=== PATIENT | female | born 1995 | race Caucasian/White ===

== ENCOUNTER 2018-10-31 16:16 | Inpatient (IN) ==
[2018-10-31] MEDS ORDERED: MOM Conc 10 ML UD.LIQ PO PRN (16:26)
[2018-10-31] MEDS ORDERED: Mag Hydrox/Al Hydrox/Simeth 30 ML UDC PO PRN (16:26)
[2018-10-31] MEDS ORDERED: *HR* LORazepam 1 MG TABLET PO PRN (16:26)
[2018-10-31] MEDS ORDERED: Haloperidol Lactate 5 MG/ML VIAL IM PRN (16:26)
[2018-10-31] MEDS ORDERED: *HR* LORazepam 2 MG/ML VIAL IM PRN (16:26)
[2018-10-31] MEDS: hydrOXYzine pamoate 25 MG CAPSULE PO PRN (23:46)
--- NOTE | 2018-11-01 09:45 | Psychiatry History & Physical ---
Date of Encounter: 11/01/18 Time of Encounter: 09:37 History of Present Illness Patient Stated Chief Complaint: psychosis Medicare Admission Attestation: For traditional Medicare patients the provided hospital inpatient services are reasonable and necessary and in the case of services not specified as inpatient-only under 42 CFR 419.22 (n), that they are appropriately provided as inpatient services in accordance 42 CFR 412.3. For Critical Access Hospital the patient may reasonably be expected to be discharged or transferred to a hospital within 96 hours after admission to the Critical Access Hospital. Admitted From: Home Plans for Post Hospital Care: Home History of Present Illness: Ms. Meadows is a 23 year old female who was admitted medically to [facility] with mental status changes. Medical work up unremarkable. She was transferred to a medical floor here at [facility] and Psychiatry was consulted yesterday. On eval client appeared psychotic. She was pleasant but delusional. She reported not knowing if she was male or female and thought that she had just had a baby in the bed. According to notes client has no mental health history but that in the past couple of weeks her behaviors have been changing at home. She has been increasingly dramatic. Emotionally labile. Not wanting her boyfriend to leave the house and chasing after him when he would go out. Denied SI/HI to providers but very confused. Did not appear to know where she was at times. Received prns after transferring to last night. This morning she is sleeping heavily. Cannot be aroused to talk. Best to let her sleep as it is unclear how well she was sleeping at home. Notes do say she was not eating well. Physically healthy. Smokes THC but otherwise no AOD issues. Mother called into unit this morning and stated client put herself through college. Psychology major. No mental illness in family members. However, client is at the age where symptoms of major mental illness often start. Will order an antipsychotic to start today. Mental status exam will be based on how she presented to the consult service yesterday as she is sleeping heavily today. Past Med Surg Social Fam HX - Past Medical History Medical history: no medical history, non-contributory - Past Psychiatric History Psychiatric history: Reports: no psych history Family psychiatric history: No Family History of Suicide: None - Past Surgical History Surgical History: no surgical history - Social History Smoking Status: Never smoker Smokeless Tobacco Status: Yes Alcohol use: rarely Drug use: marijuana - Family History Father Living Status: Still Living Hx Family Cardiac Disorders: No Hx Family Respiratory Disorders: No Hx Family Cancer: No Medications & Allergies Allergy/AdvReac Type Severity Reaction Status Date / Time No Known Allergies Allergy Verified 10/29/18 17:27 Review of Systems Constitutional: Denies: fever, chills, weakness, weight change Eyes: Denies: eye pain, vision change Ears, Nose, Throat: Denies: ear pain, throat pain, dental pain, hearing loss, congestion Cardiovascular: Denies: chest pain, palpitations, dyspnea on exertion Respiratory: Denies: cough, dyspnea, wheezes Gastrointestinal: Denies: abdominal pain, nausea, vomiting, diarrhea, constipation Genitourinary female: Denies: urgency, dysuria, frequency, abnormal menses, dyspareunia Musculoskeletal: Denies: joint swelling, joint pain Integumentary: Denies: rash, lesions, pruritus Neurological: Denies: headache, weakness, numbness, memory loss Endocrine: Denies: fatigue, heat or cold intolerance Hematologic/Lymphatic: Denies: easy bruising, lymphadenopathy Allergic/Immunologic: Denies: urticaria, itchy eyes Exam - HEENT Head exam IM: Present: atraumatic Eye exam IM: Present: EOMI ENT exam IM: Present: normal exam - Neurological Neurological exam: Present: CN II-XII intact - Respiratory Respiratory exam IM: Present: CTAB - GI/Abdominal GI/Abdominal exam IM: Present: normal bowel sounds, soft. Absent: tenderness - Extremities Extremities exam IM: Present: full ROM - Skin Skin exam IM: Present: dry, warm - Constitutional Vitals: Temp Pulse Resp BP Pulse Ox 98.9 F 97 18 124/83 97 11/01/18 08:54 11/01/18 08:54 11/01/18 08:54 11/01/18 08:54 11/01/18 08:54 General appearance: age & developmentally appropriate, well-groomed, well- nourished - Musculoskeletal Gait: normal Station: relaxed Strength & Tone: normal for patient - Psychiatric Patient Orientation: Yes Person, Yes Place Level of alertness: Alert, Sedated Behavior: calm, cooperative Psychomotor activity: Normal Eye Contact: Maintains Eye Contact Mood Description: Anxious Affect description: congruent with mood Speech Volume: Normal Speech pattern: normal rate, normal rhythm, normal tone, fluent, spontaneous Language & Vocabulary: consistent with education Thought Process: Tangential Thought Content: No Suicidal ideation, No Homicidal ideation, Yes Overt delusions Perceptual Disturbances: No Auditory hallucinations, No Visual hallucinations Attention Span Ability: Capable of Focused Attention Memory Description: Immediate Intact, Recent Impaired, Remote Intact Patient Reliability: Questionable Historian Fund of knowledge: Yes abstraction ability, Yes average, Yes aware of current events Intelligence Estimate: Average Judgment: Limited Insight: Minimal Assessment and Plan (1) Unspecified psychosis Current visit: Yes Status: Acute Plan: Admit inpatient for safety and stabilization, Close observation, Suicide Precautions per unit protocol, Encourage participation in unit milieu, Group Therapy, Monitor sleep, Monitor appetite Risks, benefits, side effects, alternatives discussed w/pt: Yes Patient agreeable to treatment: Yes Plans for Post Hospital Care: Home Estimated Length of Stay (Days): 4 Qualifiers: Psychosis type: unspecified psychosis type Qualified Code(s): F29 - Unspecified psychosis not due to a substance or known physiological condition
[2018-11-01] MEDS: hydrOXYzine pamoate 25 MG CAPSULE PO PRN ×2 (13:51→21:35)
[2018-11-01] MEDS: risperiDONE 0.25 MG TABLET PO SCH (21:35)
[2018-11-02] MEDS: risperiDONE 0.25 MG TABLET PO SCH (09:04)
--- NOTE | 2018-11-02 09:44 | Psychiatry Progress Note ---
Date of Encounter: 11/02/18 Time of Encounter: 09:36 Subjective Interval history: Client is awake and alert today. Pleasant but a poor historian. Speech is vague and without real content. Talks superficially about everything. No clear history of mental illness. Admits to some depression and anxiety in the past but symptoms were mild. No history of treatment beyond some counseling with school therapists when feeling overwhelmed. Denies SI/HI/AH/VH. Does not appear to be responding to IS but still somewhat disorganized. Came out of room naked last night. Responded to redirection. No evidence of cooper or major depression. Clearly has altered thinking but not overtly paranoid. 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 Took Risperdal last night. No longer having any agitation so it seems to be helping. Will increase dose slightly for tonight. Discussed and client admitted she had one but said it was a couple of years ago and she is doing fine with it. Does not seem to be a recent stressor. Review of Systems Constitutional: Denies: fever, chills, weakness, weight change Eyes: Denies: eye pain, vision change Ears, Nose, Throat: Denies: ear pain, throat pain, dental pain, hearing loss, congestion Cardiovascular: Denies: chest pain, palpitations, dyspnea on exertion Respiratory: Denies: cough, dyspnea, wheezes Gastrointestinal: Denies: abdominal pain, nausea, vomiting, diarrhea, constipation Musculoskeletal: Denies: joint swelling, joint pain Neurological: Denies: headache, weakness, numbness, memory loss Results - Vital Signs Vital Signs: Temp Pulse Resp BP Pulse Ox 98.6 F 112 20 152/98 99 11/01/18 20:03 11/01/18 20:03 11/01/18 20:03 11/01/18 20:03 11/01/18 20:03 Assessment and Plan (1) Unspecified psychosis Current visit: Yes Status: Acute Plan: Continue hospitalization, Close observation, Suicide Precautions per unit protocol, Encourage participation in unit milieu, Group Therapy, Monitor sleep, Monitor appetite Risks, benefits, side effects, alternatives discussed w/pt: Yes Patient agreeable to treatment: Yes Qualifiers: Psychosis type: unspecified psychosis type Qualified Code(s): F29 - Unspecified psychosis not due to a substance or known physiological condition Psychiatry Exam - Constitutional Vitals: Temp Pulse Resp BP Pulse Ox 98.6 F 112 20 152/98 99 11/01/18 20:03 11/01/18 20:03 11/01/18 20:03 11/01/18 20:03 11/01/18 20:03 General appearance: age & developmentally appropriate, well-groomed, well- nourished - Musculoskeletal Gait: normal Station: relaxed Strength & Tone: normal for patient - Psychiatric Patient Orientation: Yes Person, Yes Place Level of alertness: Alert Behavior: calm, cooperative Psychomotor activity: Normal Eye Contact: Maintains Eye Contact Mood Description: Euthymic/stable Affect description: congruent with mood, full range Speech Volume: Normal Speech pattern: normal rate, normal rhythm, normal tone, fluent, spontaneous Language & Vocabulary: consistent with education Thought Process: [place] Thought Content: No Suicidal ideation, No Homicidal ideation, Yes Poverty of Content Perceptual Disturbances: No Auditory hallucinations, No Visual hallucinations Attention Span Ability: Capable of Focused Attention Memory Description: Immediate Intact, Recent Impaired, Remote Intact Patient Reliability: Questionable Historian Fund of knowledge: Yes abstraction ability, Yes aware of current events Intelligence Estimate: Average Judgment: Limited Insight: Minimal
[2018-11-02] MEDS: hydrOXYzine pamoate 25 MG CAPSULE PO PRN (18:28)
[2018-11-02] MEDS: Ibuprofen 400 MG TABLET PO PRN (19:45)
[2018-11-02] MEDS: risperiDONE 1 MG TABLET PO SCH (20:44)
[2018-11-03] MEDS: risperiDONE 1 MG TABLET PO SCH ×2 (09:16→20:40)
--- NOTE | 2018-11-03 09:23 | Psychiatry Progress Note ---
Date of Encounter: 11/03/18 Time of Encounter: : Subjective Interval history: Patient reports that she is doing well. She continues to have speech without much content. She will talk for several minutes straight and repeat the same generalities over and over. She was pleasant. She was able to complete a clock draw appropriately. She still was disorganized. Her shirt was open and exposing her breasts to some extent. She was able to state that she is a "girl" and identify all of the other genders of individuals in the room. An improvement from a few days ago when she did not know her own gender. She was able to state her name. She was agreeable to allowing us to speak with her mother. A voicemail was left asking for a return call. She was later noted to be on the ground in the day room coloring. She identified that she was in the hospital. Review of Systems Integumentary: Denies: rash Neurological: Reports: headache. Denies: abnormal gait Psychiatric: Reports: confusion, memory loss, mood swings, panic attacks Results - Vital Signs Vital Signs: Temp Pulse Resp BP Pulse Ox 99.4 F 109 18 104/66 98 11/03/18 09:00 11/03/18 09:00 11/03/18 09:00 11/03/18 09:00 11/03/18 09:00 Assessment and Plan (1) Unspecified psychosis Current visit: Yes Status: Acute Plan: Continue hospitalization, Close observation, Suicide Precautions per unit protocol, Encourage participation in unit milieu, Group Therapy, Monitor sleep, Monitor appetite, Other (Phone call placed to mother left a message) Additional Plan: Risperdal was increased yesterday. She is tolerating that okay. We will continue that dose for today consider further increase tomorrow if she continues to have disorganized thinking. Encourage group attendance. Therapists working on discharge planning. Risks, benefits, side effects, alternatives discussed w/pt: Yes Patient agreeable to treatment: Yes Qualifiers: Psychosis type: unspecified psychosis type Qualified Code(s): F29 - Unspecified psychosis not due to a substance or known physiological condition Psychiatry Exam - Constitutional Vitals: Temp Pulse Resp BP Pulse Ox 99.4 F 109 18 104/66 98 11/03/18 09:00 11/03/18 09:00 11/03/18 09:00 11/03/18 09:00 11/03/18 09:00 General appearance: age & developmentally appropriate, unkempt, disheveled Additional observations: Shirt was open at the top - Musculoskeletal Gait: slow Station: relaxed Strength & Tone: normal for patient - Psychiatric Patient Orientation: Yes Person, Yes Place Level of alertness: Follows commands (slowed) Behavior: distractible, withdrawn Psychomotor activity: Slowed Eye Contact: Maintains Eye Contact Mood Description: Other Patient description of mood: "ok" Affect description: flat Speech Volume: No variation in volume Speech pattern: monotone Language & Vocabulary: consistent with education Thought Process: Thought Blocking Thought Content: No Suicidal ideation, No Homicidal ideation Perceptual Disturbances: Yes Reacting to internal stimuli (possible) Attention Span Ability: Unable to Focus, Unable to Sustain Attention Memory Description: Immediate Impaired, Recent Impaired, Remote Impaired Patient Reliability: Questionable Historian Fund of knowledge: Yes average Intelligence Estimate: Average Judgment: Poor Insight: None
--- NOTE | 2018-11-03 13:26 | Event Note ---
Date of Encounter: 11/03/18 Time of Encounter: 13:00 AALIYAH was received and patient's mother, Estefanía, was called. She explains that Lois is acting "not like my daughter" right now. She explains that Lois went to college while in high school and graduated with 2 associates degrees. She explains that she went to [employer] and got an undergraduate degree in psychology. She states that her daughter has always been a straight a student and until recently has been a "[id number]" person, working after college as well. She reports that she first noticed abnormal behavior 3.5 weeks ago when she received a "long and emotional" text message from the patient explaining of how she was proud of her mother and loved her very much. She also reports that the patient would speak about world peace and being able to assist with world peace with her degree. She explains that the patient became anxious at times because "God would not forgive her for her sins." She reports that the patient's boyfriend was worried about her mother and would talk often about childhood. Patient's mother explains that she is never known her daughter to use drugs. She denies that she gives the patient drugs. She explains that she just found out that her daughter had smoked marijuana at times. She is asked the patient's boyfriend several times if the patient has used drugs which he is denied except for marijuana use which he reports she used the last 2.5 weeks ago. She reports the most significant symptom she is noticed from the patient is memory loss. She states that it appears that she does not have a memory of the last few years or of her boyfriend. She explains that when she talks with the patient, the patient words wanting to go home with "sissy." When asked what home is, the patient reports home with her mother. Her mother reports that she has not lived with her mother in the last 3 years. She also reports that she had to explain to the patient how to shower and had a brush her teeth, reporting that the patient was given the toothbrush in charge brush her hair with it. He continues to state that they were playing [address] in the day room, and the patient was unable to understand the game. She also reports that her daughter was cussing when she was not allowed to leave and would never class in front of her in the past. She did report that the patient admitted to an at the age of 20 which the mom had not previously noted about. She did explain that patient was upset about this issue. She reports that her daughter does have a history of depression and anxiety, stating that she was in therapy at the ages of 18 and 19. She denies that her daughter has ever been on psychiatric medications. She denies that her daughters had issue with social skills. She does report that her daughter did not have a lot of friends but states she did have a "handful of close friends." She reports a positive family history of the patient's maternal great- grandmother having a diagnosis of schizophrenia. She denies any other family history of mental health issues. The patient's mother also reports that she currently lives in [facility]. She reports that any follow-up services would have to be near this area.
[2018-11-03] MEDS: Ibuprofen 400 MG TABLET PO PRN (14:39)
[2018-11-03 19:59] LABS: Basophils % 0.4 %; Eosinophils # 0.1 K/mcL (0.0-0.6); Eosinophils % 1.6 %; Hematocrit 41.7 % (35.3-44.9); Hemoglobin 13.8 g/dL (11.5-15.4); Immature Granulocytes % 0.2 % (0-4); Lymphocytes # 2.3 K/mcL (0.6-4.6); Lymphocytes % 28.2 %; Mean Corpuscular HGB Conc 33.1 g/dL (31.6-35.5); Mean Corpuscular Hemoglobin 30.4 pg (28.0-33.3); Mean Corpuscular Volume 91.9 fL (83.0-100.0); Mean Platelet Volume 9.6 fL (9.4-12.4); Monocytes # 0.7 K/mcL (0.0-1.3); Monocytes % 8.9 %; Neutrophils # 4.9 K/mcL (1.6-8.9); Platelet Count 357 K/mcL (140-400); Red Blood Count 4.54 M/mcL (3.82-4.97); Segmented Neutrophils % 60.7 %
[2018-11-03 20:13] LABS: Alanine Aminotransferase 10 Units/L (7-52); Albumin 4.9 g/dL (3.5-5.7); Albumin/Globulin Ratio 1.8 (1.1-2.2); Alkaline Phosphatase 69 Units/L (34-104); Aspartate Amino Transferase 12 Units/L (13-39); BUN/Creatinine Ratio 7 (6-26); Bilirubin,Total 0.7 mg/dL (0.3-1.0); Blood Urea Nitrogen 5 mg/dL (6-20); Calcium 9.8 mg/dL (8.6-10.3); Carbon Dioxide 26 mEq/L (23-29); Chloride 105 mEq/L (98-107); Cholesterol 168 mg/dL (< 200); Globulin 2.8 g/dL (2.4-3.5); Glucose 100 mg/dL (70-105); HDL Cholesterol 57 mg/dL (40-59); Osmolality,Calculated 281 (280-300); Potassium 3.5 mEq/L (3.5-5.1); Sodium 137 mEq/L (136-145); Total Protein 7.7 g/dL (6.4-8.9); Triglycerides 62 mg/dL (< 150); eGFR For Non-African Americans > 60 (> 60)
[2018-11-03 20:14] LABS: Chol/HDL Ratio 2.9 (0-4.9); LDL Cholesterol,Calculated 99 mg/dL (0-99)
[2018-11-03 20:36] LABS: Estimated Average Glucose 100 mg/dl; Hemoglobin A1C 5.1 %
[2018-11-03] MEDS: hydrOXYzine pamoate 25 MG CAPSULE PO PRN (20:40)
[2018-11-03 20:41] LABS: Bilirubin,Urine Negative (Negative); Blood,Urine Negative (Negative); Clarity,Urine Cloudy (Clear); Color,Urine Yellow (Yellow); Glucose,Urine (UA) Normal (Normal); Ketones,Urine Negative (Negative); Leukocyte Esterase,Urine Trace (Negative); Nitrite,Urine Negative (Negative); PH,Urine 6.5 pH Units (5.0-8.0); Protein,Urine Negative (Neg-Trace); Specific Gravity,Urine < 1.005 (1.010-1.025); Urobilinogen,Urine Normal (Normal)
[2018-11-03 20:44] LABS: Bacteria,Urine Moderate per hpf (None-Few); RBC,Urine 0-3 per hpf (0-3); Squamous Epithelial Cell,Urine Many per lpf (None-Few)
[2018-11-03 21:04] LABS: Hyaline Casts,Urine None Seen per lpf (None-Few)
--- NOTE | 2018-11-04 08:43 | Psychiatry Progress Note ---
Date of Encounter: 11/04/18 Time of Encounter: 08:40 Subjective Interval history: Patient continues to be confused with significant thought blocking. Needs instructions in how to bathe and brush her teeth and encouragement to sit down and eat. Not caring for ADLs. Sexually inapropriate and trying to go into peers rooms. +AH. Review of Systems Neurological: Reports: headache, weakness Psychiatric: Reports: confusion, memory loss, mood swings, panic attacks Endocrine: Reports: fatigue Results - Vital Signs Vital Signs: Temp Pulse Resp BP Pulse Ox 98.4 F 108 16 114/78 98 11/03/18 19:42 11/03/18 19:42 11/03/18 19:42 11/03/18 19:42 11/03/18 09:00 - Labs Labs: Laboratory Results - last 24 hr 11/03/18 11/03/18 11/03/18 19:36 19:36 19:36 WBC 8.1 RBC 4.54 Hgb 13.8 Hct 41.7 MCV 91.9 MCH 30.4 MCHC 33.1 RDW 13.0 Plt Count 357 MPV 9.6 Immature Gran % 0.2 Seg Neutrophils % 60.7 Lymphocytes % 28.2 Monocytes % 8.9 Eosinophils % 1.6 Basophils % 0.4 Neutrophils # 4.9 Lymphocytes # 2.3 Monocytes # 0.7 Eosinophils # 0.1 Basophils # 0.0 Sodium 137 Potassium 3.5 Chloride 105 Carbon Dioxide 26 BUN 5 L Creatinine 0.67 Est GFR ( Amer) > 60 Est GFR (Non-Af Amer) > 60 BUN/Creatinine Ratio 7 Glucose 100 Est Mean Plasma Glucose Hemoglobin A1c Calculated Osmolality 281 Calcium 9.8 Total Bilirubin 0.7 AST 12 L ALT 10 Alkaline Phosphatase 69 Serum Total Protein 7.7 Albumin 4.9 Globulin 2.8 Albumin/Globulin Ratio 1.8 Triglycerides 62 Cholesterol 168 LDL Cholesterol, Calc 99 VLDL Cholesterol, Calc 12 HDL Cholesterol 57 Cholesterol/HDL Ratio 2.9 TSH 2.987 Urine Color Urine Clarity Urine pH Ur Specific [place] Urine Protein Urine Glucose (UA) Urine Ketones Urine Blood Urine Nitrite Urine Bilirubin Urine Urobilinogen Ur Leukocyte Esterase Urine Microscopic RBC Urine Microscopic WBC Ur Squamous Epith Cells Urine Bacteria Hyaline Casts Ur Culture Indicated? 11/03/18 11/03/18 19:36 20:14 WBC RBC Hgb Hct MCV MCH MCHC RDW Plt Count MPV Immature Gran % Seg Neutrophils % Lymphocytes % Monocytes % Eosinophils % Basophils % Neutrophils # Lymphocytes # Monocytes # Eosinophils # Basophils # Sodium Potassium Chloride Carbon Dioxide BUN Creatinine Est GFR ( Amer) Est GFR (Non-Af Amer) BUN/Creatinine Ratio Glucose Est Mean Plasma Glucose 100 Hemoglobin A1c 5.1 Calculated Osmolality Calcium Total Bilirubin AST ALT Alkaline Phosphatase Serum Total Protein Albumin Globulin Albumin/Globulin Ratio Triglycerides Cholesterol LDL Cholesterol, Calc VLDL Cholesterol, Calc HDL Cholesterol Cholesterol/HDL Ratio TSH Urine Color Yellow Urine Clarity Cloudy A Urine pH 6.5 Ur Specific [place] < 1.005 L Urine Protein Negative Urine Glucose (UA) Normal Urine Ketones Negative Urine Blood Negative Urine Nitrite Negative Urine Bilirubin Negative Urine Urobilinogen Normal Ur Leukocyte Esterase Trace H Urine Microscopic RBC 0-3 Urine Microscopic WBC 5-15 H Ur Squamous Epith Cells Many H Urine Bacteria Moderate H Hyaline Casts None Seen Ur Culture Indicated? NO. A Assessment and Plan (1) Unspecified psychosis Current visit: Yes Status: Acute Plan: Continue hospitalization, Close observation, Suicide Precautions per unit protocol, Encourage participation in unit milieu, Group Therapy, Monitor sleep, Monitor appetite Additional Plan: Increase hs risperdal to 2mg for further antipsychotic effects, encourage groups, therapits working on d/c planning, labs look better, denies uti sxs. Risks, benefits, side effects, alternatives discussed w/pt: Yes Patient ag reeable to treatment: Yes Qualifiers: Psychosis type: unspecified psychosis type Qualified Code(s): F29 - Unspecified psychosis not due to a substance or known physiological condition Consult Discharge Plan - Plan Referrals: NONE,PCP [Primary Care Provider] - Psychiatry Exam - Constitutional Vitals: Temp Pulse Resp BP Pulse Ox 98.4 F 108 16 114/78 98 11/03/18 19:42 11/03/18 19:42 11/03/18 19:42 11/03/18 19:42 11/03/18 09:00 General appearance: unkempt, disheveled, malodorous Additional observations: low cut shirt - Musculoskeletal Gait: slow Station: stooped Strength & Tone: mild weakness - Psychiatric Patient Orientation: Yes Person, Yes Place Level of alertness: Alert, Other (slow responses) Behavior: restless, distractible Psychomotor activity: Slowed Eye Contact: Minimal Contact Mood Description: Other Patient description of mood: "ok" Affect description: flat Speech Volume: Soft/Quiet, No variation in volume Speech pattern: monotone Language & Vocabulary: consistent with education Thought Process: Thought Blocking Thought Content: No Suicidal ideation, No Homicidal ideation, Yes Preoccupation Perceptual Disturbances: Yes Auditory hallucinations Attention Span Ability: Unable to Focus, Unable to Sustain Attention Memory Description: Immediate Impaired, Recent Impaired, Remote Impaired Patient Reliability: Questionable Historian Fund of knowledge: Yes average Intelligence Estimate: Average Judgment: Poor Insight: Minimal
[2018-11-04] MEDS: risperiDONE 1 MG TABLET PO SCH ×2 (09:18→21:16)
[2018-11-04] MEDS: hydrOXYzine pamoate 25 MG CAPSULE PO PRN (21:14)
--- NOTE | 2018-11-05 09:06 | Psychiatry Progress Note ---
Date of Encounter: 11/05/18 Time of Encounter: 08:00 Subjective Interval history: Patient impulsively walked into my office. She then proceeded to sit down and talk. She continues to be very disorganized and intrusive. She is not caring for her activities of daily living. Poor hygiene. Needs encouragement to eat. Putting herself in harm's way being sexually inappropriate. She continues to have some thought blocking and hallucinations. She tolerated increase Risperdal last night but that she still has some difficulty staying asleep. She is talking about good and evil and evil things she has done in the past. Review of Systems Neurological: Denies: headache, weakness Psychiatric: Reports: auditory hallucinations, confusion, memory loss, difficulty concentrating Endocrine: Denies: fatigue Results - Vital Signs Vital Signs: Temp Pulse Resp BP Pulse Ox 97.8 F 108 16 136/89 98 11/04/18 21:00 11/04/18 21:00 11/04/18 21:11/04/18 21:00 11/04/18 09:00 Assessment and Plan (1) Unspecified psychosis Current visit: Yes Status: Acute Plan: Continue hospitalization, Close observation, Suicide Precautions per unit protocol, Encourage participation in unit milieu, Group Therapy, Monitor sleep, Monitor appetite Additional Plan: Continue Risperdal, consider further increase tomorrow, encourage groups, therapist working on working on discharge planning Risks, benefits, side effects, alternatives discussed w/pt: Yes Patient agreeable to treatment: Yes Qualifiers: Psychosis type: unspecified psychosis type Qualified Code(s): F29 - Unspecified psychosis not due to a substance or known physiological condition Consult Discharge Plan - Plan Referrals: NONE,PCP [Primary Care Provider] - Psychiatry Exam - Constitutional Vitals: Temp Pulse Resp BP Pulse Ox 97.8 F 108 16 136/89 98 11/04/18 21:00 11/04/18 21:00 11/04/18 21:00 11/04/18 21:11/04/18 09:00 General appearance: age & developmentally appropriate, unkempt, disheveled - Musculoskeletal Gait: slow Station: stooped Strength & Tone: normal for patient - Psychiatric Patient Orientation: Yes Person, Yes Place Level of alertness: Alert Psychomotor activity: Slowed Eye Contact: Minimal Contact Mood Description: Other ("fine") Patient description of mood: "fine" Affect description: flat, incongruent with mood Speech Volume: Soft/Quiet Speech pattern: rambling, monotone Language & Vocabulary: consistent with education Thought Process: Thought Blocking Thought Content: No Suicidal ideation, No Homicidal ideation, Yes Preoccupation Perceptual Disturbances: Yes Reacting to internal stimuli, Yes Auditory hallucinations Attention Span Ability: Unable to Focus, Unable to Sustain Attention Memory Description: Immediate Impaired, Recent Impaired, Remote Impaired Patient Reliability: Questionable Historian Fund of knowledge: Yes average Intelligence Estimate: Average Judgment: Poor Insight: Minimal
[2018-11-05] MEDS: risperiDONE 1 MG TABLET PO SCH ×2 (10:04→20:48)
[2018-11-06 09:00] VITALS: BP 113/64
[2018-11-06] MEDS: risperiDONE 1 MG TABLET PO SCH (09:17)
--- NOTE | 2018-11-06 09:51 | Discharge Summary ---
Date of Encounter: 11/06/18 Time of Encounter: 09:49 Diagnosis - Discharge Diagnosis (1) Unspecified psychosis Status: Acute Qualifiers: Psychosis type: unspecified psychosis type Qualified Code(s): F29 - Unspecified psychosis not due to a substance or known physiological condition Medications - Discharge Medications Prescriptions: hydrOXYzine pamoate [HydrOXYzine Pamoate] 25 mg PO TID PRN #30 capsule PRN Reason: Anxiety risperiDONE [RisperDAL] 1 mg PO QAM #30 tablet risperiDONE [RisperDAL] 2 mg PO HS #30 tablet hydrOXYzine pamoate [HydrOXYzine Pamoate] 25 mg PO TID PRN #30 capsule 11/06/18 [Rx] risperiDONE [RisperDAL] 1 mg PO QAM #30 tablet 11/06/18 [Rx] risperiDONE [RisperDAL] 2 mg PO HS #30 tablet 11/06/18 [Rx] Allergy/AdvReac Type Severity Reaction Status Date / Time No Known Allergies Allergy Verified 10/29/18 17:27 Results Procedures and tests throughout hospitalization: Completed Lab Orders Category Date Time Status Complete Blood Count [HEME] Routine Lab 11/03/18 19:36 Completed Comprehensive Metabolic Panel Routine Lab 11/03/18 19:36 Completed Hgb A1C Routine Lab 11/03/18 19:36 Completed Lipid Panel Routine Lab 11/03/18 19:36 Completed Thyroid Stimulating Hormone Routine Lab 11/03/18 19:36 Completed Urinalysis Reflex Cult & Micro [URIN] Routine Lab 11/03/18 20:14 Completed Lab Results 11/03/18 11/03/18 11/03/18 Range/Units 19:36 19:36 19:36 WBC 8.1 (4.3-11.1) K/mcL RBC 4.54 (3.82-4.97) M/mcL Hgb 13.8 (11.5-15.4) g/dL Hct 41.7 (35.3-44.9) % MCV 91.9 (83.0-100.0) fL MCH 30.4 (28.0-33.3) pg MCHC 33.1 (31.6-35.5) g/dL RDW 13.0 (11.5-14.5) % Plt Count 357 (140-400) K/mcL MPV 9.6 (9.4-12.4) fL Immature Gran % 0.2 (0-4) % Seg Neutrophils % 60.7 % Lymphocytes % 28.2 % Monocytes % 8.9 % Eosinophils % 1.6 % Basophils % 0.4 % Neutrophils # 4.9 (1.6-8.9) K/mcL Lymphocytes # 2.3 (0.6-4.6) K/mcL Monocytes # 0.7 (0.0-1.3) K/mcL Eosinophils # 0.1 (0.0-0.6) K/mcL Basophils # 0.0 (0.0-0.2) K/mcL Sodium 137 (136-145) mEq/L Potassium 3.5 (3.5-5.1) mEq/L Chloride 105 (98-107) mEq/L Carbon Dioxide 26 (23-29) mEq/L BUN 5 L (6-20) mg/dL Creatinine 0.67 (0.60-1.20) mg/dL Est GFR ( Amer) > 60 (> 60) Est GFR (Non-Af Amer) > 60 (> 60) BUN/Creatinine Ratio 7 (6-26) Glucose 100 (70-105) mg/dL Est Mean Plasma Glucose mg/dl Hemoglobin A1c ( - 5.6) % Calculated Osmolality 281 (280-300) Calcium 9.8 (8.6-10.3) mg/dL Total Bilirubin 0.7 (0.3-1.0) mg/dL AST 12 L (13-39) Units/L ALT 10 (7-52) Units/L Alkaline Phosphatase 69 (34-104) Units/L Serum Total Protein 7.7 (6.4-8.9) g/dL Albumin 4.9 (3.5-5.7) g/dL Globulin 2.8 (2.4-3.5) g/dL Albumin/Globulin Ratio 1.8 (1.1-2.2) Triglycerides 62 (< 150) mg/dL Cholesterol 168 (< 200) mg/dL LDL Cholesterol, Calc 99 (0-99) mg/dL VLDL Cholesterol, Calc 12 (< 31) mg/dL HDL Cholesterol 57 (40-59) mg/dL Cholesterol/HDL Ratio 2.9 (0-4.9) TSH 2.987 (0.340-5.600) mcIU/mL Urine Color (Yellow) Urine Clarity (Clear) Urine pH (5.0-8.0) pH Units Ur Specific [place] (1.010-1.025) Urine Protein (Neg-Trace) mg/dL Urine Glucose (UA) (Normal) mg/dL Urine Ketones (Negative) mg/dL Urine Blood (Negative) Urine Nitrite (Negative) Urine Bilirubin (Negative) Urine Urobilinogen (Normal) mg/dL Ur Leukocyte Esterase (Negative) Urine Microscopic RBC (0-3) per hpf Urine Microscopic WBC (0-3) per hpf Ur Squamous Epith Cells (None-Few) per lpf Urine Bacteria (None-Few) per hpf Hyaline Casts (None-Few) per lpf Ur Culture Indicated? (NO) 11/03/18 11/03/18 Range/Units 19:36 20:14 WBC (4.3-11.1) K/mcL RBC (3.82-4.97) M/mcL Hgb (11.5-15.4) g/dL Hct (35.3-44.9) % MCV (83.0-100.0) fL MCH (28.0-33.3) pg MCHC (31.6-35.5) g/dL RDW (11.5-14.5) % Plt Count (140-400) K/mcL MPV (9.4-12.4) fL Immature Gran % (0-4) % Seg Neutrophils % % Lymphocytes % % Monocytes % % Eosinophils % % Basophils % % Neutrophils # (1.6-8.9) K/mcL Lymphocytes # (0.6-4.6) K/mcL Monocytes # (0.0-1.3) K/mcL Eosinophils # (0.0-0.6) K/mcL Basophils # (0.0-0.2) K/mcL Sodium (136-145) mEq/L Potassium (3.5-5.1) mEq/L Chloride (98-107) mEq/L Carbon Dioxide (23-29) mEq/L BUN (6-20) mg/dL Creatinine (0.60-1.20) mg/dL Est GFR ( Amer) (> 60) Est GFR (Non-Af Amer) (> 60) BUN/Creatinine Ratio (6-26) Glucose (70-105) mg/dL Est Mean Plasma Glucose 100 mg/dl Hemoglobin A1c 5.1 ( - 5.6) % Calculated Osmolality (280-300) Calcium (8.6-10.3) mg/dL Total Bilirubin (0.3-1.0) mg/dL AST (13-39) Units/L ALT (7-52) Units/L Alkaline Phosphatase (34-104) Units/L Serum Total Protein (6.4-8.9) g/dL Albumin (3.5-5.7) g/dL Globulin (2.4-3.5) g/dL Albumin/Globulin Ratio (1.1-2.2) Triglycerides (< 150) mg/dL Cholesterol (< 200) mg/dL LDL Cholesterol, Calc (0-99) mg/dL VLDL Cholesterol, Calc (< 31) mg/dL HDL Cholesterol (40-59) mg/dL Cholesterol/HDL Ratio (0-4.9) TSH (0.340-5.600) mcIU/mL Urine Color Yellow (Yellow) Urine Clarity Cloudy A (Clear) Urine pH 6.5 (5.0-8.0) pH Units Ur Specific [place] < 1.005 L (1.010-1.025) Urine Protein Negative (Neg-Trace) mg/dL Urine Glucose (UA) Normal (Normal) mg/dL Urine Ketones Negative (Negative) mg/dL Urine Blood Negative (Negative) Urine Nitrite Negative (Negative) Urine Bilirubin Negative (Negative) Urine Urobilinogen Normal (Normal) mg/dL Ur Leukocyte Esterase Trace H (Negative) Urine Microscopic RBC 0-3 (0-3) per hpf Urine Microscopic WBC 5-15 H (0-3) per hpf Ur Squamous Epith Cells Many H (None-Few) per lpf Urine Bacteria Moderate H (None-Few) per hpf Hyaline Casts None Seen (None-Few) per lpf Ur Culture Indicated? NO. A (NO) Provider Date of admission: 10/31/18 16:16 Primary care physician: PCP NONE Discharging clinician: Monica Ivan Psychiatry Exam - Constitutional Vitals: Temp Pulse Resp BP Pulse Ox 98.1 F 116 16 113/64 98 11/06/18 08:59 11/06/18 08:59 11/06/18 08:59 11/06/18 08:59 11/06/18 08:59 General appearance: age & developmentally appropriate, well-groomed, well- nourished - Musculoskeletal Gait: normal Station: relaxed Strength & Tone: normal for patient - Psychiatric Patient Orientation: Yes Person, Yes Time, Yes Place Level of alertness: Alert Behavior: calm, cooperative Psychomotor activity: Normal Eye Contact: Maintains Eye Contact Mood Description: Euthymic/stable Affect description: congruent with mood, full range Speech Volume: Normal Speech pattern: normal rate, normal rhythm, normal tone, fluent, spontaneous, rambling Language & Vocabulary: consistent with education Thought Process: Linear, Goal Oriented, Perseveration (On concerns of hurting people's feelings) Thought Content: No Suicidal ideation, No Homicidal ideation, No Overt delusions Perceptual Disturbances: No Auditory hallucinations, No Visual hallucinations Attention Span Ability: Capable of Focused Attention Memory Description: Grossly Intact Patient Reliability: Reliable Historian Fund of knowledge: Yes abstraction ability, Yes aware of current events Intelligence Estimate: Average Judgment: Good Insight: Partial Hospital Course Hospital course: Ms. Meadows is a 23 year old female who was admitted for psychosis. Her initial lab workup was consistent with poor nutrition prior to admission as well as a not clean-catch urine. On repeat her labs improved. Her urine catch continued to be contaminated but was not concerning for UTI. She was started on Risperdal which she tolerated and was titrated up.Patient was educated of diagnosis and the risk-benefit side effects of this alternative treatment options and was monitored for responsiveness and side effects. Mood anxiety sleep and appetite interest improved as did future orientation. Self-harm thoughts subsided, thinking cleared, psychosis approved, and mood stabilized. Patient was able to attend both individual and group therapy sessions as well as meet with the psychiatrist daily and urged to discuss any medication or treatment issues or other concerns. The patient was educated primarily by verbal means about their diagnosis and manifestations in their life. The option for treatment including group and individual therapy programming was offered to the patient in addition to the use of medications with all their potential risks, benefits, and side effects as well as the risks of not taking medication and non-adhereance were discussed with the patient at length. The patient was given the opportunity to ask questions and was noted to participate in the treatment in the planning process. The patient felt ready and eager to be discharged from the inpatient psychiatric unit to continue on with treatment as an outpatient. I spoke with her mother who also felt she was appropriate for discharge. The patient agreed that is they were safe for this disposition. The patient was considered to be able to participate in informed consent and decision making with respect to medical, legal, and financial issues of the time of discharge. At the time of discharge the patient adamantly denied any concerns for lethality including suicidal or homicidal thoughts ideations or plans and was future oriented toward ongoing mental health care, medical follow-up and sobriety. Time spent discussing smoking cessation with patient: 3 to 10 minutes Does patient wish to continue nicotine replacement upon disc: No (n/a) - Time Spent with Patient Total time spent providing and/or coordinating discharge services: Less than 30 minutes Specific discharge activities: Interval history reviewed. Available labs reviewed . Psychotherapy provided. Patient had an opportunity to ask questions and address concerns. Patient was in agreement with the treatment plan. The risks benefits and side effects of medications were discussed with the patient, including alternatives and treatment. The patient was educated on the abstaining from any alcohol or illicit substances, following up with all scheduled appointments, and taking all medications as prescribed. The patient was educated on 90 meetings in 90 days and to find a sponsor. Assessment and Plan - Patient/Caregiver Discharge Instructions Activity: resume usual activities as tolerated Diet: regular diet Additional Instructions: Continue Risperdal. Therapist is making outpatient arrangements. Encourage attendance at the Center at [facility]. - Follow up Plan Follow up with: NONE,PCP [Primary Care Provider] - Functional capacity at discharge: independent ambulation Overall status at discharge: Stable Disposition: Home, Self-Care Quality - Multiple Antipsychotics Patient discharged on 2 or more antipsychotic medications: No Procedures - Procedures Procedures: Medication Management, Crisis Stabilization, Supportive Therapy, Group Therapy, Psychoeducational Therapy
== END 2018-11-06 16:32 | disposition home or self-care (01) | DRG 751 ==
LOC: 1ANU 16:16 → SUATTDRO 16:16
PROVIDERS: ADMIT Psychiatry & Neurology Psychiatry; ATTEND Psychiatry & Neurology Psychiatry